=== PATIENT | female | born 1945 | race African-American/Black ===

== ENCOUNTER 2017-09-08 23:25 | Emergency (ER) | payer MEDICARE, MEDICAID ==
[~2017-09-08] VITALS: Ht 160 cm; Wt 68.0 kg
[~2017-09-08 23:25] MED LIST: ACETAMINOPHEN500 M3 PO; AEROSOL THERAPY1 DEV XX; AMLODIPINE10 MG PO; ARIMIDEX1 MG PO; AZITHROMYCIN250 M1 PO; BISAC-EVAC10 MG PR; CEFDINIR 300MG300 MG PO; CITALOPRAM10 MG PO; DEPAKOTE ER250 MG PO; DUONEB 3 MG/3 ML3 ML IH; IBUPROFEN 600M600 MG PO; LEVAQUIN500 MG PO; MIRTAZAPINE15 M1 PO; PREDNISONE 20MG20 MG PO; PROAIR HFA0.09 MG/AC IH; ROBAFEN100 MG/5 M PO; ROBITUSSIN DM 105 ML PO; SEROQUEL 100MG100 MG PO; ZYPREXA5 MG PO
--- OUTSIDE RECORDS SUMMARY | 2017-09-08 23:46 | External Medical Summary Rpt | CCD ---
Author Author [facility] Organization [employer] Address Unknown Phone Unavailable Purpose Continuity of Care Document - through 2016
--- OUTSIDE RECORDS SUMMARY | 2017-09-08 23:46 | External Medical Summary Rpt | CCD ---
Author Author , MANDI RAYMOND Address Unknown Phone Purpose Continuity of Care Document - through 2016
--- OUTSIDE RECORDS SUMMARY | 2017-09-08 23:48 | External Medical Summary Rpt | CCD ---
Demographics Preferred Language Mongolian Marital Status Unknown Hinduism Affiliation Unknown Race Unknown Ethnic Group Unknown Author Author , MANDI RAYMOND Address Unknown Phone Immunization Unable to retrieve immunization data due to connection failure with Immunization Registry. Please try again later.
--- OUTSIDE RECORDS SUMMARY | 2017-09-08 23:48 | External Medical Summary Rpt | CCD ---
Demographics Preferred Language Polish Marital Status Unknown Anabaptist Affiliation Unknown Race Unknown Ethnic Group Unknown Author Author , MANDI RAYMOND Address Unknown Phone Immunization Unable to retrieve immunization data due to connection failure with Immunization Registry. Please try again later.
--- NOTE | 2017-09-09 01:22 | Emergency Room Report ---
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 N Clinical Suspician of Infection? N Mental Status: 1 - Regular (Normal Baseline) Sepsis Risk:Low Sepsis Risk Have you (or family members/close friends) recently traveled outside the [place]? N If Yes, where/when: Have you had exposure to infectious disease within the past month? N TB? Other? Specify: Source patient, RN notes reviewed, EMS, senior care records, old records Exam Limitations no limitations Comment pt with trip type fall this pm with lt facial lac - no chest pain and no loc or sz - pt has known meninogoma and has breast cancer and was seen by oncology nov 1 - Cardiac Chest Pain Chest pain indicative of cardiac No Timing/Duration this evening Severity moderate ALLERGIES Coded Allergies: No Known Allergies (11/17/15) Home Medications Active Scripts DEXTROMETHORPHAN-GG (Guaifenesin Dm Syrup) 10 ML PO Q4HP PRN COUGH #120 SYR Prov: 11/14/14 NEBULIZER (Compact Compressor Nebulizer) UNIT XX UD #1 Prov: 12/10/14 Prednisone (Prednisone 20MG) 20 MG PO DAILY #15 TAB Prov: 12/10/14 Albuterol/Ipratropiu (Duoneb) 3 ML IH QID #120 NEB Ref 3 Prov: 12/10/14 Reported Medications Bisacodyl (Bisacodyl Supp) 10 MG DC DAILYP PRN constipation IBUPROFEN MICRONIZED (IBUPROFEN 600MG) 600 MG PO Q6HP PRN PAIN Acetaminophen (Acetaminophen Extra Strength) 500 MG PO Q6HP PRN PAIN Albuterol Sulfate (Proair Hfa) 1 PUFF IH Q4HP PRN sob wheezing Guaifenesin (Robafen) 100 MG PO PRN PRN cough Amlodipine Besylate (Amlodipine) 10 MG PO DAILY Anastrozole (Arimidex) 1 MG PO DAILY Divalproex Sodium (Depakote ER) 750 MG PO DAILY Mirtazapine 7.5 MG PO DAILY Olanzapine (Zyprexa) 20 MG PO QHS QUETIAPINE FUMARATE (Quetiapine Fumarate) 150 MG PO QHS History Medical History General CAD? No Angina: No [place]: No Hypertension? Yes Hyperlipidemia? No CHF? No DVT? No PE? No COPD? No Asthma? No Anemia? No GERD? No Gastric ulcers? No GI Bleed? No Hernia? No Thyroid Problems? No Hypothyroidism? No CVA? No Seizures? No Diabetes? No Insulin Dependent: No Insulin Pump: No Home FSBS? No Renal Insuffiency? No End Stage Renal Disease? No UTI? No Stones? No BPH? No GB Disease: No Nephritic Syndrome? No Asplenia? No Hepatitis? No Sickle Cell Disease? No Arthritis? Yes Migraines? Yes Cataracts? No Glaucoma? No MRSA? No HIV? No TB? No Anxiety? Yes Depression? Yes Cancer? Yes Site: BREAST LEFT AND BRAIN More? No Immunization Hx DT/Tetanus > 10 Years Ago Flu Refused Pneumonia Refuses Surgical Hx Previous Surgery?Y Hysterectomy-Total Family History Family Hx Diabetes No CAD No Hypertension No Hyperlipidemia No Cancer No TB No Social History Smoking Hx Smoker: Current Every Day Smoker Tobacco: Yes Type Cigarettes Packs/day 1 1/2 - 2 Packs Alcohol Alcohol: No Drugs none Review of Systems All Other Systems Reviewed and Negative Constitutional denies fever Eyes denies drainage ENT denies: ear discharge, epistaxis. Respiratory denies cough, denies shortness of breath Cardiovascular denies chest pain, denies syncope Gastrointestinal denies abdominal pain, denies diarrhea, denies vomiting Genitourinary denies: dysuria, frequency, hesitancy, hematuria. Musculoskeletal denies back pain, denies joint pain, denies joint swelling, denies neck pain Skin see HPI, denies rash, other Psychiatric/Neurological see HPI, denies headache, denies seizure Physical Exam Vital Signs Vital Signs Date Time Temp Pulse Resp B/P Pulse O2 O2 Flow FiO2 Ox Delivery Rate 09/09 0115 98.7 81 18 129/69 90 09/09 0052 98.7 85 18 135/75 93 09/08 2329 98.9 95 18 125/65 90 - WBC >12,000 or <4,000 or 10% bands? 2 or more SIRS Criteria Met? B/P:129/69 MAP:85 Creatinine >2.0? UA output<0.5ml/kg/hr for 2 hrs? Platelet count >100,000? Lactate >2.0mmol/1? INR >1.2 or PTT > than 60 sec? Evidence of Organ Dysfunction? Provider documented clinical suspician of infection? N Sepsis Criteria Count: 1 Sepsis Risk: Low Sepsis Risk General Appearance no apparent distress Eye Exam - bilateral eye PERRL, bilateral eye EOMI Ear, Nose, Throat normal ENT inspection, no evid of tongue biting Neck non-tender Respiratory Status No: respiratory distress. Lung Sounds bilateral: lungs clear. 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 No Results/Orders Laboratory Tests 09/09/17 0131: Sodium 138, Potassium 4.5, Chloride 104, Carbon Dioxide 28, BUN 11, Creatinine 0.9, Estimated Creat Clear 60, Estimated GFR (MDRD) 61, Glucose 97, Calcium 9.1, Total Bilirubin 0.7, AST 10 L, ALT 11 L, Alkaline Phosphatase 104, Total Protein 7.5, Albumin 3.2 L, Globulin 4.3 H, Albumin/Globulin Ratio 0.7 L, WBC 11.0 H, RBC 4.97, Hgb 13.7, Hct 45.0, MCV 90.5, RDW 16.6, Plt Count 222, MPV 7.6, Gran % 82.3 H, Gran # 9.0 H, Lymphocytes % 10.8, Monocytes % 5.8, Eosinophils % 0.8, Basophils % 0.4, Lymphocytes # 1.2, Monocytes # 0.6, Eosinophils # 0.1, Basophils # 0.0, PUBS MCHC 30.5 L, MCH 27.6, Valproic Acid 40.0 L Current Medication Orders Sig/Carrie Start time Last Medication Dose Route Stop Time Status Admin Lidocaine HCl 0 .STK-MED ONE 09/09 127 DC .ROUTE Orders Procedure Date/time Status DIET-NOTHING BY MOUTH 09/[address] HEAD W/O CONTRAST 09/[address] SCAN REQ 09/09 123 Active VALPROIC ACID (DEPAKENE) 09/09 123 Complete COMPLETE METABOLIC PANEL 09/09 123 Complete CBC WITH AUTO DIFF 09/09 123 Complete XRAY/CT/US XRAY/CT/US CT head CT interpretation by discussed w/radiologist Time results known: 041 CT Results abnormal (see report ) Procedures Laceration/Wound Repair Laceration/Wound Repair Risks/benefits discussed with pt/guardian? Yes Tetanus status up to date Wound Location face Wound Length (cm) 1 Wound's Depth, Shape sucutaneous tissue Wound Explored no FB identified Risk of retained FB explained to pt/guardian? Yes Irrigated w/ Saline (ccs) 0 Wound Prep Hibiclens, Saline Anesthesia 1% Lidocaine, Local Volume Anesthetic (ccs) 2 Wound Debrided none Wound Repaired With sutures Suture Size/Type 4:0, Ethilon Layer Closure No Total Number Sutures 2 Sterile Dressing Applied Yes Splint Applied No Sling Applied No Departure Departure Time of Disposition 408 Disposition DC Home or Self Care(routine) Clinical Impression Primary Impression: Facial laceration Qualifiers: Encounter type: initial encounter Qualified Code: S01.81XA - Laceration without foreign body of other part of head, initial encounter Secondary Impressions: Meningioma Condition STABLE Referrals Partha Terry MD (Family) Patient Instructions DI for Laceration Repair Additional Instructions will need to talk with oncology sunday- pt does not wish to be transfered to [facility] Discharge Counseling Counseled pt/family regarding diagnosis, test results, medications/RX, follow up needs ED Critical Care Critical Care No at 0414
--- NOTE | 2017-09-09 01:22 | Emergency Room Report ---
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 N Clinical Suspician of Infection? N Mental Status: 1 - Regular (Normal Baseline) Sepsis Risk:Low Sepsis Risk Have you (or family members/close friends) recently traveled outside the [place]? N If Yes, where/when: Have you had exposure to infectious disease within the past month? N TB? Other? Specify: Source patient, RN notes reviewed, EMS, custodial records, old records Exam Limitations no limitations Comment pt with trip type fall this pm with lt facial lac - no chest pain and no loc or sz - pt has known meninogoma and has breast cancer and was seen by oncology nov 1 - Cardiac Chest Pain Chest pain indicative of cardiac No Timing/Duration this evening Severity moderate ALLERGIES Coded Allergies: No Known Allergies (11/17/15) Home Medications Active Scripts DEXTROMETHORPHAN-GG (Guaifenesin Dm Syrup) 10 ML PO Q4HP PRN COUGH #120 SYR Prov: 11/14/14 NEBULIZER (Compact Compressor Nebulizer) UNIT XX UD #1 Prov: 12/10/14 Prednisone (Prednisone 20MG) 20 MG PO DAILY #15 TAB Prov: 12/10/14 Albuterol/Ipratropiu (Duoneb) 3 ML IH QID #120 NEB Ref 3 Prov: 12/10/14 Reported Medications Bisacodyl (Bisacodyl Supp) 10 MG MO DAILYP PRN constipation IBUPROFEN MICRONIZED (IBUPROFEN 600MG) 600 MG PO Q6HP PRN PAIN Acetaminophen (Acetaminophen Extra Strength) 500 MG PO Q6HP PRN PAIN Albuterol Sulfate (Proair Hfa) 1 PUFF IH Q4HP PRN sob wheezing Guaifenesin (Robafen) 100 MG PO PRN PRN cough Amlodipine Besylate (Amlodipine) 10 MG PO DAILY Anastrozole (Arimidex) 1 MG PO DAILY Divalproex Sodium (Depakote ER) 750 MG PO DAILY Mirtazapine 7.5 MG PO DAILY Olanzapine (Zyprexa) 20 MG PO QHS QUETIAPINE FUMARATE (Quetiapine Fumarate) 150 MG PO QHS History Medical History General CAD? No Angina: No [place]: No Hypertension? Yes Hyperlipidemia? No CHF? No DVT? No PE? No COPD? No Asthma? No Anemia? No GERD? No Gastric ulcers? No GI Bleed? No Hernia? No Thyroid Problems? No Hypothyroidism? No CVA? No Seizures? No Diabetes? No Insulin Dependent: No Insulin Pump: No Home FSBS? No Renal Insuffiency? No End Stage Renal Disease? No UTI? No Stones? No BPH? No GB Disease: No Nephritic Syndrome? No Asplenia? No Hepatitis? No Sickle Cell Disease? No Arthritis? Yes Migraines? Yes Cataracts? No Glaucoma? No MRSA? No HIV? No TB? No Anxiety? Yes Depression? Yes Cancer? Yes Site: BREAST LEFT AND BRAIN More? No Immunization Hx DT/Tetanus > 10 Years Ago Flu Refused Pneumonia Refuses Surgical Hx Previous Surgery?Y Hysterectomy-Total Family History Family Hx Diabetes No CAD No Hypertension No Hyperlipidemia No Cancer No TB No Social History Smoking Hx Smoker: Current Every Day Smoker Tobacco: Yes Type Cigarettes Packs/day 1 1/2 - 2 Packs Alcohol Alcohol: No Drugs none Review of Systems All Other Systems Reviewed and Negative Constitutional denies fever Eyes denies drainage ENT denies: ear discharge, epistaxis. Respiratory denies cough, denies shortness of breath Cardiovascular denies chest pain, denies syncope Gastrointestinal denies abdominal pain, denies diarrhea, denies vomiting Genitourinary denies: dysuria, frequency, hesitancy, hematuria. Musculoskeletal denies back pain, denies joint pain, denies joint swelling, denies neck pain Skin see HPI, denies rash, other Psychiatric/Neurological see HPI, denies headache, denies seizure Physical Exam Vital Signs Vital Signs Date Time Temp Pulse Resp B/P Pulse O2 O2 Flow FiO2 Ox Delivery Rate 09/09 0115 98.7 81 18 129/69 90 09/09 0052 98.7 85 18 135/75 93 09/08 2329 98.9 95 18 125/65 90 - WBC >12,000 or <4,000 or 10% bands? 2 or more SIRS Criteria Met? B/P:129/69 MAP:85 Creatinine >2.0? UA output<0.5ml/kg/hr for 2 hrs? Platelet count >100,000? Lactate >2.0mmol/1? INR >1.2 or PTT > than 60 sec? Evidence of Organ Dysfunction? Provider documented clinical suspician of infection? N Sepsis Criteria Count: 1 Sepsis Risk: Low Sepsis Risk General Appearance no apparent distress Eye Exam - bilateral eye PERRL, bilateral eye EOMI Ear, Nose, Throat normal ENT inspection, no evid of tongue biting Neck non-tender Respiratory Status No: respiratory distress. Lung Sounds bilateral: lungs clear. 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 No Results/Orders Laboratory Tests 09/09/17 0131: Sodium 138, Potassium 4.5, Chloride 104, Carbon Dioxide 28, BUN 11, Creatinine 0.9, Estimated Creat Clear 60, Estimated GFR (MDRD) 61, Glucose 97, Calcium 9.1, Total Bilirubin 0.7, AST 10 L, ALT 11 L, Alkaline Phosphatase 104, Total Protein 7.5, Albumin 3.2 L, Globulin 4.3 H, Albumin/Globulin Ratio 0.7 L, WBC 11.0 H, RBC 4.97, Hgb 13.7, Hct 45.0, MCV 90.5, RDW 16.6, Plt Count 222, MPV 7.6, Gran % 82.3 H, Gran # 9.0 H, Lymphocytes % 10.8, Monocytes % 5.8, Eosinophils % 0.8, Basophils % 0.4, Lymphocytes # 1.2, Monocytes # 0.6, Eosinophils # 0.1, Basophils # 0.0, PUBS MCHC 30.5 L, MCH 27.6, Valproic Acid 40.0 L Current Medication Orders Sig/Carrie Start time Last Medication Dose Route Stop Time Status Admin Lidocaine HCl 0 .STK-MED ONE 09/09 127 DC .ROUTE Orders Procedure Date/time Status DIET-NOTHING BY MOUTH 09/[address] HEAD W/O CONTRAST 09/[address] SCAN REQ 09/09 123 Active VALPROIC ACID (DEPAKENE) 09/09 123 Complete COMPLETE METABOLIC PANEL 09/09 123 Complete CBC WITH AUTO DIFF 09/09 123 Complete XRAY/CT/US XRAY/CT/US CT head CT interpretation by discussed w/radiologist Time results known: 041 CT Results abnormal (see report ) Procedures Laceration/Wound Repair Laceration/Wound Repair Risks/benefits discussed with pt/guardian? Yes Tetanus status up to date Wound Location face Wound Length (cm) 1 Wound's Depth, Shape sucutaneous tissue Wound Explored no FB identified Risk of retained FB explained to pt/guardian? Yes Irrigated w/ Saline (ccs) 0 Wound Prep Hibiclens, Saline Anesthesia 1% Lidocaine, Local Volume Anesthetic (ccs) 2 Wound Debrided none Wound Repaired With sutures Suture Size/Type 4:0, Ethilon Layer Closure No Total Number Sutures 2 Sterile Dressing Applied Yes Splint Applied No Sling Applied No Departure Departure Time of Disposition 408 Disposition DC Home or Self Care(routine) Clinical Impression Primary Impression: Facial laceration Qualifiers: Encounter type: initial encounter Qualified Code: S01.81XA - Laceration without foreign body of other part of head, initial encounter Secondary Impressions: Meningioma Condition STABLE Referrals Partha Terry MD (Family) Patient Instructions DI for Laceration Repair Additional Instructions will need to talk with oncology sunday- pt does not wish to be transfered to [facility] Discharge Counseling Counseled pt/family regarding diagnosis, test results, medications/RX, follow up needs ED Critical Care Critical Care No at 0410
[2017-09-09 02:11] LABS: HEMOGLOBIN 13.7 g/dL (12.2-16.2); LYMPH # 1.2 K/mm3 (0.7-4.5); LYMPH % 10.8 % (10-50.0)
[2017-09-09 04:23] VITALS: BP 144/77
--- NOTE | 2017-09-09 20:54 | RADIOLOGY REPORT PS360 ---
CT HEAD WITHOUT CONTRAST CT BONE WINDOWS included ORDERING PHYSICIAN : Ricki Terry MD PATIENT AGE: 72 years GENDER: Female PROCEDURE: Routine axial images headwithout contrast. Brain & bone windows HISTORY: [id number] with history of fall. Striking left frontal bone No LOC. ., . COMPARISON is made to 11/26/2015 CT with without contrast. As well as CT from December 2014. Also seen on MR brain from 2014. FINDINGS: This patient has a known meningioma at the anterior LEFT follicle lobe. This is enlarged slightly since November 2015 CT with and without contrast.. As well as other previous studies. The large anterior dural meningioma here at the frontal demonstrates greater mass effect with increasing size measurements as well. Measuring Nearly 5.5 cm AP X 4.5 cm transverse.. Be additional mass effect noting progressive effacement upon the frontal horn of the left lateral ventricle. .. There is slight additional shift of midline to the right at the level of the frontal horns also noted.The edema adjacent/surrounding the meningioma appears very slightly more evident today as well.. Recommend follow-up neurosurgery consult. I would suggest a follow-up MR with and without contrast prior to that consult No hemorrhage is seen here or elsewhere.. This patient also has an area of vague area of decreased attenuation at the superior RIGHT frontal lobe anteriorly but no associated lesion seen here. Axial image 25-29 Likely reflects old insult or injury with minor encephalomalacia. It appears unchanged as prior study. Posterior fossa unchanged. Cerebellum and lilly appear satisfactory. Dense calcification vertebral arteries incidentally noted at base of skull.. Stable mild chronic microvascular ischemic changes deep white matter again noted. . No skull lesion or skull fracture. Generous thickness of skull throughout. The visualized portions of the paranasal sinuses are clear. Mastoid air cells, middle ear & IACs are unremarkable. IMPRESSION: 1. No acute hemorrhage. No acute intracranial findings. 2. When compared to November 2015 there is been Interval increased size of left frontal meningioma. This mass Now measuring up to 5.5 cm x 4.5 cm size. With Increased mass effect . Slight increase in perilesional edema.. Up to5 mm rightward shift of midline at level of frontal horns. Neurosurgical follow-up required Suggest MR brain with without contrast as well 3.. Stable old Subtle area of lower density encephalomalaciaSuperior right frontal lobe again noted. Likely From old insult or injury .
== END 2017-09-09 04:28 | disposition home or self-care (01) ==
LOC: ER 23:25
PROVIDERS: Emergency Medicine
PROC: 0HQ1XZZ Repair Face Skin, External Approach (ICD-10-PCS; principal; 2017-09-08)
DX: S01.81XA Laceration without foreign body of other part of head, initial encounter (principal); F41.8 Other specified anxiety disorders; F17.210 Nicotine dependence, cigarettes, uncomplicated; I10 Essential (primary) hypertension; W01.0XXA Fall on same level from slipping, tripping and stumbling without subsequent striking against object, initial encounter; Y92.199 Unspecified place in other specified residential institution as the place of occurrence of the external cause

== ENCOUNTER → 2017-10-04 | Outpatient (CLI) | payer MEDICARE, MEDICAID ==
[2017-10-04 10:17] LABS: HEMOGLOBIN 13.8 g/dL (12.2-16.2); LYMPH # 1.3 K/mm3 (0.7-4.5); LYMPH % 25.5 % (10-50.0)
[2017-10-04 11:20] LABS: BUN 9 mg/dL (7-18)
[2017-10-04 11:21] LABS: GFR (ESTIMATED) 54 ML/MIN (59-)
--- NOTE | 2017-10-09 08:56 | RADIOLOGY REPORT PS360 ---
DIG MAMM-SCREEN ANNE W/CAD CAD Screening COMPARISON: Digital mammograms 12/14/2015 and 03/16/2015 INDICATION: The patient is from [facility] and can't give no history. The patient was very difficult to position for standard views. TECHNIQUE: Standard CC and MLO images were obtained. R2 CAD reviewed. FINDINGS: Prominent diffuse fibroglandular densities are seen in both breasts. Again noted is the asymmetric density deep within the left breast 6:00 position in the center which is a biopsy clip in this almost surely represents a post lumpectomy site. It has shown interval contraction of this scar from the previous studies. There is a biopsy clip right breast outer quadrant at approximately the 9:00 position. There are couple benign-appearing calcination is in each breast. IMPRESSION: Diffusely dense parenchymal pattern with what is likely post lumpectomy scarring left breast which has shown some slight interval contraction of the scar when compared to most recent study. Recommend continued yearly follow-up BI-RADS CATEGORY: 2_Benign RECOMMENDED FOLLOWUP: 12M 12 MONTH FOLLOW-UP (A letter has been sent to the patient regarding results of the study.)
== END ==
LOC: RAD 09:56
PROVIDERS: Nurse Practitioner
DX: C50.919 Malignant neoplasm of unspecified site of unspecified female breast (principal); D38.1 Neoplasm of uncertain behavior of trachea, bronchus and lung; Z12.31 Encounter for screening mammogram for malignant neoplasm of breast
CPT/HCPCS: G0202

== ENCOUNTER → 2017-10-08 | Outpatient (CLI) | payer MEDICARE, MEDICAID ==
--- NOTE | 2017-10-11 15:04 | RADIOLOGY REPORT PS360 ---
CT CHEST W/ CONTRAST Ordering Physician: Aaron Hurst MD Patient Age: 72 years: Female HISTORY: LUNG NODULES,ADRENAL NODULES,BREAST CA TECHNIQUE: Helical CT scanning performed through the chest following 75 cc [id number]. Sagittal coronal reconstructions on CT workstation COMPARISON :Previous CT chest 07/26/2016 and November 2015. FINDINGS Diffuse Emphysematous changes. Today's CT chest with less optimal inspiration which in part accentuates markings throughout particularly at lung bases. There is mild accentuation of interstitial pattern throughout compared to prior study particularly at the posterior lung bases which again I favor mainly reflects atelectasis but there could be a subtle interstitial infiltrate additional particularly here at the posterior left lower lobe. Cannot exclude some very mild vascular congestion. Heart is larger in size with progressive cardiomegaly. Coronary artery calcification. The accentuated fibrotic changes the posterior aspect of the right upper lobe are actually slightly improved however Pulmonary arteries appear generous caliber bilaterally which may reflect underlying pulmonary hypertension. No pleural effusion. No pneumothorax. Mediastinum. No mediastinal adenopathy. No hilar mass. No retrocrural adenopathy. No intrabronchial lesion. The small 6 mm nodular density anterior aspect RML has not changed appreciably since studies dating back to November 2015. Most likely stable feature but no good evidence of additional metastatic disease. Osseous structures intact with no lesions. Thyroid unremarkable. Aorta normal caliber. IMPRESSION. --------- 1.. No evidence of metastatic disease. Stable small 6 mm nodule anterior RML. Nonspecific. Unchanged 2. Prominent emphysematous changes again noted. Chronic fibrotic changes. Suggestion of mild accentuation of interstitial & fibrotic changes particularly at posterior lung bases particularly the left-. Most likely this reflects less optimal inspiration & atelectasis. Difficult to exclude mild superimposed interstitial infiltrate & subtle vascular congestion. Correlation required. Cardiomegaly with heart appearing slightly larger. No pleural effusion.. Suggest follow-up PA and lateral chest & if patient progressively short of breath may want to check a BNP.
--- NOTE | 2017-10-11 15:48 | RADIOLOGY REPORT PS360 ---
CT ABD PELVIS W/ CONTRAST Ordering Physician: Aaron Hurst MD Patient Age: 72 years: Female HISTORY: LUNG NODULES,ADRENAL NODULES,BREAST CA TECHNIQUE:. CT scanning performed the abdomen & pelvis following [id number]. Oral contrast also utilized. Sagittal coronal reconstructions on CT workstation. COMPARISON :CT abdomen pelvis July 2016 FINDINGS Lung bases Emphysematous & fibrotic changes again observed with bibasilar atelectasis again noted.. Small stable 6 mm nodular density anterior RML partially imaged. Cardiomegaly observed no pleural effusion. Abdomen/ .. Liver unremarkable no focal lesions. Spleen unremarkable. Pancreas appears satisfactory. Stable. . Prominent gas within large and small bowel do create some streak artifact particularly in the upper abdomen from their motion-partially obscuring some structure including gallbladder. Gallbladder. Again minimal calcified stones towards neck of gallbladder. Common duct stable a moderate-sized Adrenals nodules bilateral. Right adrenal nodule measuring 3.3 cm length x 1.9 cm has not enlarged appreciably since previous studies.. No significant change or progression here. Left adrenal contains a 14 x 15 mm nodule which is difficult to discern. Kidneys. We can see some lobulated scarring bilaterally with stable small punctate calculi kidneys bilaterally. A 4 mm calculus upper pole left kidney, with small 3 mm calculus nonobstructive upper portion right kidney. I would note the patient is quite thin there is a slightly hazy appearance to the subcutaneous and intra-abdominal fat which may reflect hypoproteinemia. Addendum and edematous state. Correlation required Pelvis. Bladder unremarkable hysterectomy. GI tract. Prominent of stool is seen throughout the colon on reflecting constipation this includes a large amount stool at the distended rectum up to 7 cm diameter which may reflect a developing fecal impaction. Correlation clinically required. There is also prominent gas seen throughout the large bowel particularly at the redundant sigmoid colon and into the left colon, transverse colon. A generous small bowel gas also noted patient had a similar pattern on previous study reflect underlying constipation. Osseous. Diffuse sclerotic course appearance bone again seen to right hemipelvis again noted and stable since prior studies with no appreciable change. This may reflect paget disease of boneof bone given its diffuse character rather than metastatic disease. IMPRESSION... Bilateral Adrenal enlargement,/ nodules-similar to previous studies. Right adrenal stable. Smaller left adrenal nodule perhaps slightly more evident. Warrants ongoing follow-up Diffuse osteosclerosis right hemipelvis again noted and stable. 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 Cholelithiasis Stable small punctate nonobstructing renal calculi bilaterally Additional comments: Suggestion of slight hazy appearance of fat posterior abdomen, is seen along the gutters & posterior perirenal space. Patient is quite thin with minimal intra-abdominal & subcutaneous fat. Warrants correlation with nutritional status;,. Hypoproteinemia, or mild edematous features otherwise?
== END ==
LOC: RAD 10:30
DX: C50.919 Malignant neoplasm of unspecified site of unspecified female breast (principal); R91.8 Other nonspecific abnormal finding of lung field
CPT/HCPCS: Q9967